=== PATIENT | male | born 1975 | race African-American/Black ===

== ENCOUNTER 2023-08-20 01:14 | Inpatient (IN) | payer OTHER ==
[2023-08-20 02:08] VITALS: BMI 23.5
[2023-08-20] MEDS ORDERED: MAG HYDROX/AL HYDROX/SIMETH 30 ML UNIT-DOSE CUP PO PRN (02:25)
[2023-08-20] MEDS ORDERED: NALOXONE HCL 0.4 MG/ML VIAL IM PRN (02:25)
[2023-08-20] MEDS ORDERED: DICYCLOMINE HCL 10 MG CAPSULE PO PRN (02:25)
[2023-08-20] MEDS ORDERED: IBUPROFEN 400 MG TABLET (FP) PO PRN (02:25)
[2023-08-20] MEDS ORDERED: ONDANSETRON *ODT* 4 MG TABLET SL PRN (02:25)
[2023-08-20] MEDS ORDERED: BENZOCAINE/MENTHOL (CHLORASEPTIC ) LOZENGE MM PRN (02:25)
[2023-08-20] MEDS ORDERED: guaiFENesin 600 MG TABLET.ER (FP) PO PRN (02:25)
[2023-08-20] MEDS ORDERED: MAGNESIUM HYDROX 2400MG/30ML ORAL SUSPENSION 30 ML CUP PO PRN (02:25)
[2023-08-20] MEDS ORDERED: ACETAMINOPHEN 325 MG TABLET (FP) PO PRN (02:25)
[2023-08-20] MEDS ORDERED: NALOXONE HCL (KLOXXADO) 8 MG SPRAY NS PRN (02:25)
[2023-08-20] MEDS ORDERED: LOPERAMIDE HCL 2 MG CAPSULE PO PRN (02:25)
[2023-08-20] MEDS ORDERED: BISMUTH SUBSALICYLATE 524 MG/30 ML PO PRN (02:25)
[2023-08-20] MEDS ORDERED: NICOTINE POLACRILEX 4 MG GUM BUC PRN (02:25)
[2023-08-20] MEDS ORDERED: POLYETHYLENE GLYCOL (HEALTHYLAX) 3350 17 GM PACKET PO PRN (02:25)
[2023-08-20] MEDS ORDERED: BENZONATATE 200 MG CAPSULE PO PRN (02:25)
[2023-08-20] MEDS ORDERED: cloNIDine HCL 0.1 MG TABLET PO ONE (02:27)
[2023-08-20] MEDS: hydrOXYzine PAMOATE 25 MG CAPSULE (FP) PO PRN (02:48)
[2023-08-20] MEDS ORDERED: methaDONE HCL 10 MG TABLET (FOR DETOX USE ONLY) PO ONE (09:15)
[2023-08-20] MEDS: PRENATAL VITAMINS W/ FOLIC ACID TABLET (FP) PO SCH (09:22)
[2023-08-20] MEDS: LISINOPRIL 10 MG TABLET PO SCH (09:23)
[2023-08-20] MEDS: NICOTINE 21 MG/24 HOURS TOPICAL PATCH TD SCH (09:31)
[2023-08-20 12:04] LABS: HEMATOCRIT 40.2 % (35.4-49); HEMOGLOBIN 12.5 GM/dL (11.7-16.9); MCH 22.7 pg (25.7-33.7); MEAN CELL VOLUME 73.3 fl (80-96); MEAN PLT VOLUME 8.5 fl (7.5-11.1); PLATELET COUNT 186 10^3/uL (134-434); RBC 5.48 M/mm3 (4.00-5.60); RDW 16.4 % (11.9-15.9); WHITE BLOOD COUNT 7.3 K/mm3 (4.0-10.0)
[2023-08-20 12:46] LABS: CHLORIDE 104 mmol/L (98-107); POTASSIUM 4.2 mmol/L (3.5-5.1); SODIUM 141 mmol/L (136-145)
[2023-08-20 12:51] LABS: CALCIUM 8.4 mg/dL (8.5-10.1)
[2023-08-20 12:52] LABS: ALBUMIN 3.3 g/dl (3.4-5.0); ANION GAP 5 mmol/L (4-13); BLOOD UREA NITROGEN 19.1 mg/dL (7-18); CO2 32 mmol/L (21-32); GLUCOSE,RANDOM 69 mg/dL (74-106)
[2023-08-20 12:55] LABS: CREATININE 1.3 mg/dL (0.55-1.3); SGOT/AST 26 U/L (15-37); SGPT/ALT 21 U/L (13-61)
[2023-08-20 12:56] LABS: BILIRUBIN,TOTAL 0.2 mg/dL (0.2-1); TOT PROT 6.6 g/dl (6.4-8.2)
[2023-08-20 12:58] LABS: ALK PHOS 83 U/L (45-117)
[2023-08-20] MEDS: METHOCARBAMOL 500 MG TABLET PO PRN (14:03)
[2023-08-20] MEDS: IBUPROFEN 600 MG TABLET (FP) PO PRN (14:03)
[2023-08-20] MEDS: diazePAM 5 MG TABLET PO PRN ×2 (14:05→22:28)
[2023-08-20] MEDS: MELATONIN 5 MG TABLETS PO SCH (22:29)
[2023-08-20] MEDS: cloNIDine HCL 0.1 MG TABLET PO PRN (22:29)
[2023-08-20] MEDS: THIAMINE HCL 100 MG TABLET (FP) PO SCH (22:29)
[2023-08-20 22:50] LABS: EPI CELLS 28 /uL (0-25.1); HYALINE CASTS 8 /uL (0-3.1); PH,URINE 6.5 (5.0-8.0); URINE APPEARANCE CLEAR; URINE BACTERIA 15 /uL (0-1359); URINE BILIRUBIN NEGATIVE (NEGATIVE); URINE COLOR YELLOW; URINE GLUCOSE (UA) NEGATIVE (NEGATIVE); URINE KETONE NEGATIVE (NEGATIVE); URINE LEUK ESTERASE 2+ (NEGATIVE); URINE NITRITE NEGATIVE (NEGATIVE); URINE PROTEIN TRACE (NEGATIVE); URINE RBC 27 /uL (0-23.9); URINE UROBILINOGEN 0.2 mg/dL (0.2-1.0); URINE WBC 266 /uL (0-25.8)
[2023-08-21] MEDS: PRENATAL VITAMINS W/ FOLIC ACID TABLET (FP) PO SCH (10:19)
[2023-08-21] MEDS: LISINOPRIL 10 MG TABLET PO SCH (10:20)
[2023-08-21] MEDS: NICOTINE 21 MG/24 HOURS TOPICAL PATCH TD SCH (10:22)
[2023-08-21] MEDS: ALBUTEROL SO4 HFA INHALER IH PRN ×3 (13:03→22:23)
[2023-08-21] MEDS ORDERED: ALBUTEROL SO4 HFA INHALER IH ONE (14:17)
[2023-08-21] MEDS: IBUPROFEN 600 MG TABLET (FP) PO PRN (17:15)
[2023-08-21] MEDS: cloNIDine HCL 0.1 MG TABLET PO PRN ×2 (17:15→22:22)
[2023-08-21] MEDS: diazePAM 5 MG TABLET PO PRN ×2 (17:18→22:22)
[2023-08-21] MEDS ORDERED: LISINOPRIL 10 MG TABLET PO ONE (20:46)
[2023-08-21] MEDS: THIAMINE HCL 100 MG TABLET (FP) PO SCH (22:22)
[2023-08-21] MEDS: MELATONIN 5 MG TABLETS PO SCH (22:22)
[2023-08-22] MEDS: diazePAM 5 MG TABLET PO PRN ×2 (05:37→22:02)
[2023-08-22] MEDS: METHOCARBAMOL 500 MG TABLET PO PRN ×3 (05:37→22:04)
[2023-08-22] MEDS ORDERED: methaDONE HCL 10 MG TABLET (FOR DETOX USE ONLY) PO ONE (10:00)
[2023-08-22] MEDS: LISINOPRIL 10 MG TABLET PO SCH (10:21)
[2023-08-22] MEDS: NICOTINE 21 MG/24 HOURS TOPICAL PATCH TD SCH (10:21)
[2023-08-22] MEDS: PRENATAL VITAMINS W/ FOLIC ACID TABLET (FP) PO SCH (10:21)
[2023-08-22] MEDS: hydrOXYzine PAMOATE 25 MG CAPSULE (FP) PO PRN (10:21)
[2023-08-22] MEDS: cloNIDine HCL 0.1 MG TABLET PO PRN ×2 (10:22→22:02)
[2023-08-22] MEDS ORDERED: FLU VACCINE (FLULAVAL) PF 60 MCG/0.5 ML SYRINGE 2023-2024 IM ONE (12:00)
[2023-08-22] MEDS: IBUPROFEN 600 MG TABLET (FP) PO PRN (15:09)
[2023-08-22] MEDS: BENZOCAINE 20 % GEL TUBE MM PRN (16:01)
[2023-08-22] MEDS: ALBUTEROL SO4 HFA INHALER IH PRN ×2 (16:02→22:01)
[2023-08-22] MEDS: MELATONIN 5 MG TABLETS PO SCH (22:02)
[2023-08-22] MEDS: THIAMINE HCL 100 MG TABLET (FP) PO SCH (22:02)
[2023-08-23] MEDS: BENZOCAINE 20 % GEL TUBE MM PRN ×2 (05:54→11:20)
[2023-08-23] MEDS: IBUPROFEN 600 MG TABLET (FP) PO PRN ×2 (05:55→15:30)
[2023-08-23] MEDS: PRENATAL VITAMINS W/ FOLIC ACID TABLET (FP) PO SCH (10:00)
[2023-08-23] MEDS: ALBUTEROL SO4 HFA INHALER IH PRN (10:00)
[2023-08-23] MEDS: METHOCARBAMOL 500 MG TABLET PO PRN ×2 (10:00→22:09)
[2023-08-23] MEDS: LISINOPRIL 10 MG TABLET PO SCH (10:00)
[2023-08-23] MEDS: hydrOXYzine PAMOATE 25 MG CAPSULE (FP) PO PRN ×2 (10:01→22:09)
[2023-08-23] MEDS: NICOTINE 21 MG/24 HOURS TOPICAL PATCH TD SCH (10:30)
[2023-08-23] MEDS ORDERED: cloNIDine HCL 0.1 MG TABLET PO ONE (17:45)
[2023-08-23 21:15] VITALS: RESP 18
[2023-08-23] MEDS: MELATONIN 5 MG TABLETS PO SCH (22:06)
[2023-08-23] MEDS: THIAMINE HCL 100 MG TABLET (FP) PO SCH (22:06)
[2023-08-24] MEDS: IBUPROFEN 600 MG TABLET (FP) PO PRN (06:07)
[2023-08-24 09:34] VITALS: PULSE 67; TEMP 98.2
[2023-08-24 09:35] VITALS: BP 173/106
[2023-08-24] MEDS ORDERED: methaDONE HCL 10 MG TABLET (FOR DETOX USE ONLY) PO ONE (10:00)
[2023-08-24] MEDS: PRENATAL VITAMINS W/ FOLIC ACID TABLET (FP) PO SCH (10:05)
[2023-08-24] MEDS: LISINOPRIL 10 MG TABLET PO SCH (10:06)
[2023-08-24] MEDS: NICOTINE 21 MG/24 HOURS TOPICAL PATCH TD SCH (10:06)
[2023-08-24] MEDS: hydrOXYzine PAMOATE 25 MG CAPSULE (FP) PO PRN (10:07)
[2023-08-24] MEDS: METHOCARBAMOL 500 MG TABLET PO PRN (10:07)
== END 2023-08-24 10:45 | disposition home or self-care (01) | DRG 773 ==
LOC: YASAS 01:14 → Y3N 02:53
PROVIDERS: ADMIT Allergy & Immunology; ATTEND Surgery
PROC: HZ2ZZZZ Detoxification Services for Substance Abuse Treatment (ICD-10-PCS; principal; 2023-08-20)
DX: F11.23 Opioid dependence with withdrawal (principal); F17.210 Nicotine dependence, cigarettes, uncomplicated; F19.24 Other psychoactive substance dependence with psychoactive substance-induced mood disorder; J44.9 Chronic obstructive pulmonary disease, unspecified; J45.20 Mild intermittent asthma, uncomplicated; M54.50 Low back pain, unspecified; G89.29 Other chronic pain; Z87.828 Personal history of other (healed) physical injury and trauma
CPT/HCPCS: 36415; 80053; 80307; 81003; 85027; 86593; 86780; 87086; 87635; 90686; 93005; 93010; G0008

== ENCOUNTER 2023-11-12 01:31 | Inpatient (IN) | payer OTHER ==
[2023-11-12 02:46] VITALS: BMI 22.7
[2023-11-12] MEDS ORDERED: BISMUTH SUBSALICYLATE 524 MG/30 ML PO PRN (03:23)
[2023-11-12] MEDS ORDERED: MAG HYDROX/AL HYDROX/SIMETH 30 ML UNIT-DOSE CUP PO PRN (03:23)
[2023-11-12] MEDS ORDERED: BENZONATATE 200 MG CAPSULE PO PRN (03:23)
[2023-11-12] MEDS ORDERED: BENZOCAINE/MENTHOL (CHLORASEPTIC ) LOZENGE MM PRN (03:23)
[2023-11-12] MEDS ORDERED: IBUPROFEN 400 MG TABLET (FP) PO PRN (03:23)
[2023-11-12] MEDS ORDERED: POLYETHYLENE GLYCOL (HEALTHYLAX) 3350 17 GM PACKET PO PRN (03:23)
[2023-11-12] MEDS ORDERED: NICOTINE POLACRILEX 2 MG LOZENGE BC PRN (03:23)
[2023-11-12] MEDS ORDERED: guaiFENesin 600 MG TABLET.ER (FP) PO PRN (03:23)
[2023-11-12] MEDS ORDERED: NALOXONE HCL 0.4 MG/ML VIAL IM PRN (03:23)
[2023-11-12] MEDS ORDERED: DICYCLOMINE HCL 10 MG CAPSULE PO PRN (03:23)
[2023-11-12] MEDS ORDERED: NALOXONE HCL (KLOXXADO) 8 MG SPRAY NS PRN (03:23)
[2023-11-12] MEDS ORDERED: LOPERAMIDE HCL 2 MG CAPSULE PO PRN (03:23)
[2023-11-12] MEDS ORDERED: ACETAMINOPHEN 325 MG TABLET (FP) PO PRN (03:23)
[2023-11-12] MEDS ORDERED: MAGNESIUM HYDROX 2400MG/30ML ORAL SUSPENSION 30 ML CUP PO PRN (03:23)
[2023-11-12] MEDS: IBUPROFEN 600 MG TABLET (FP) PO PRN ×2 (04:28→10:23)
[2023-11-12] MEDS: cloNIDine HCL 0.1 MG TABLET PO PRN ×3 (04:29→22:05)
[2023-11-12 09:59] LABS: HEMOGLOBIN 11.4 GM/dL (11.7-16.9); MCH 22.4 pg (25.7-33.7); MCHC 30.9 g/dl (32.0-35.9); MEAN CELL VOLUME 72.5 fl (80-96); MEAN PLT VOLUME 8.6 fl (7.5-11.1); PLATELET COUNT 225 10^3/uL (134-434); RDW 16.6 % (11.9-15.9); WHITE BLOOD COUNT 11.5 K/mm3 (4.0-10.0)
[2023-11-12] MEDS ORDERED: methaDONE HCL 10 MG TABLET (FOR DETOX USE ONLY) PO ONE (10:00)
[2023-11-12] MEDS: LISINOPRIL 10 MG TABLET PO SCH (10:22)
[2023-11-12] MEDS: NICOTINE 14 MG/24 HOURS TOPICAL PATCH TD SCH (10:22)
[2023-11-12] MEDS: PRENATAL VITAMINS W/ FOLIC ACID TABLET (FP) PO SCH (10:22)
[2023-11-12 10:27] LABS: CHLORIDE 104 mmol/L (98-107); POTASSIUM 3.8 mmol/L (3.5-5.1); SODIUM 138 mmol/L (136-145)
[2023-11-12 10:32] LABS: ALBUMIN 3.2 g/dl (3.4-5.0); ANION GAP 5 mmol/L (4-13); BLOOD UREA NITROGEN 16.7 mg/dL (7-18); CALCIUM 8.3 mg/dL (8.5-10.1); CO2 28 mmol/L (21-32); GLUCOSE,RANDOM 81 mg/dL (74-106)
[2023-11-12 10:35] LABS: CREATININE 1.4 mg/dL (0.55-1.3); SGOT/AST 25 U/L (15-37); SGPT/ALT 27 U/L (13-61)
[2023-11-12 10:37] LABS: TOT PROT 6.3 g/dl (6.4-8.2)
[2023-11-12 10:38] LABS: ALK PHOS 77 U/L (45-117); BILIRUBIN,TOTAL 0.4 mg/dL (0.2-1)
[2023-11-12] MEDS: clonazePAM 0.5 MG ODT TABLETS SL PRN ×2 (16:40→22:08)
[2023-11-12] MEDS: MELATONIN 5 MG TABLETS PO SCH (22:04)
[2023-11-12] MEDS: THIAMINE HCL 100 MG TABLET (FP) PO SCH (22:09)
[2023-11-12] MEDS: ALBUTEROL SO4 HFA INHALER IH PRN (22:10)
[2023-11-13] MEDS: ALBUTEROL SO4 HFA INHALER IH PRN ×4 (08:19→22:06)
[2023-11-13] MEDS: LISINOPRIL 10 MG TABLET PO SCH (10:10)
[2023-11-13] MEDS: PRENATAL VITAMINS W/ FOLIC ACID TABLET (FP) PO SCH (10:11)
[2023-11-13] MEDS: NICOTINE 14 MG/24 HOURS TOPICAL PATCH TD SCH (10:17)
[2023-11-13] MEDS: clonazePAM 0.5 MG ODT TABLETS SL PRN ×2 (10:18→16:54)
[2023-11-13] MEDS: OFLOXACIN 0.3% OTIC SOLUTION 5 ML BOTTLE AS SCH ×2 (10:42→22:05)
[2023-11-13] MEDS: QUEtiapine FUMARATE 50 MG TABLET PO SCH ×2 (10:42→22:04)
[2023-11-13 15:34] LABS: PH,URINE 6.5 (5.0-8.0); URINE APPEARANCE CLEAR; URINE BILIRUBIN NEGATIVE (NEGATIVE); URINE COLOR YELLOW; URINE GLUCOSE (UA) NEGATIVE (NEGATIVE); URINE KETONE NEGATIVE (NEGATIVE); URINE LEUK ESTERASE 1+ (NEGATIVE); URINE NITRITE NEGATIVE (NEGATIVE); URINE PROTEIN NEGATIVE (NEGATIVE); URINE UROBILINOGEN 0.2 mg/dL (0.2-1.0)
[2023-11-13 15:55] LABS: URINE WBC 18 /uL (0-25.8)
[2023-11-13 15:56] LABS: HYALINE CASTS 0.3 /uL (0-3.1)
[2023-11-13] MEDS: cloNIDine HCL 0.1 MG TABLET PO PRN ×2 (16:53→22:05)
[2023-11-13] MEDS: IBUPROFEN 600 MG TABLET (FP) PO PRN (16:53)
[2023-11-13] MEDS: THIAMINE HCL 100 MG TABLET (FP) PO SCH (22:04)
[2023-11-13] MEDS: MELATONIN 5 MG TABLETS PO SCH (22:05)
[2023-11-14] MEDS: ALBUTEROL SO4 HFA INHALER IH PRN ×4 (05:24→17:40)
[2023-11-14] MEDS: clonazePAM 0.5 MG ODT TABLETS SL PRN ×2 (05:27→17:19)
[2023-11-14] MEDS: cloNIDine HCL 0.1 MG TABLET PO PRN ×3 (06:44→22:06)
[2023-11-14] MEDS: QUEtiapine FUMARATE 50 MG TABLET PO SCH ×2 (09:36→22:05)
[2023-11-14] MEDS: PRENATAL VITAMINS W/ FOLIC ACID TABLET (FP) PO SCH (09:36)
[2023-11-14] MEDS: LISINOPRIL 10 MG TABLET PO SCH (09:37)
[2023-11-14] MEDS: NICOTINE 14 MG/24 HOURS TOPICAL PATCH TD SCH (09:38)
[2023-11-14] MEDS: OFLOXACIN 0.3% OTIC SOLUTION 5 ML BOTTLE AS SCH ×2 (09:38→22:06)
[2023-11-14] MEDS ORDERED: methaDONE HCL 10 MG TABLET (FOR DETOX USE ONLY) PO ONE (10:00)
[2023-11-14] MEDS: IBUPROFEN 600 MG TABLET (FP) PO PRN (10:32)
[2023-11-14] MEDS ORDERED: AMMONIUM LACTATE 12% LOTION 225 GM BOTTLE TP PRN (10:54)
[2023-11-14] MEDS: THIAMINE HCL 100 MG TABLET (FP) PO SCH (22:05)
[2023-11-14] MEDS: MELATONIN 5 MG TABLETS PO SCH (22:07)
[2023-11-15] MEDS: ALBUTEROL SO4 HFA INHALER IH PRN ×4 (08:15→22:12)
[2023-11-15] MEDS: QUEtiapine FUMARATE 50 MG TABLET PO SCH ×2 (10:14→22:10)
[2023-11-15] MEDS: LISINOPRIL 10 MG TABLET PO SCH (10:14)
[2023-11-15] MEDS: OFLOXACIN 0.3% OTIC SOLUTION 5 ML BOTTLE AS SCH ×2 (10:15→23:24)
[2023-11-15] MEDS: NICOTINE 14 MG/24 HOURS TOPICAL PATCH TD SCH (10:16)
[2023-11-15] MEDS: PRENATAL VITAMINS W/ FOLIC ACID TABLET (FP) PO SCH (10:18)
[2023-11-15] MEDS: IBUPROFEN 600 MG TABLET (FP) PO PRN (17:22)
[2023-11-15] MEDS: THIAMINE HCL 100 MG TABLET (FP) PO SCH (22:10)
[2023-11-15] MEDS: MELATONIN 5 MG TABLETS PO SCH (22:10)
[2023-11-16] MEDS ORDERED: guaiFENesin 200 MG/10 ML 10 ML UNIT-DOSE CUPS PO PRN (06:16)
[2023-11-16] MEDS ORDERED: cloNIDine HCL 0.1 MG TABLET PO ONE (06:19)
[2023-11-16] MEDS: IBUPROFEN 600 MG TABLET (FP) PO PRN (06:26)
[2023-11-16] MEDS ORDERED: SULFAMETHOXAZOLE/TRIMETHOPRIM 800MG/160MG D.S. TABLET PO SCH (10:00)
[2023-11-16] MEDS ORDERED: methaDONE HCL 10 MG TABLET (FOR DETOX USE ONLY) PO ONE (10:00)
[2023-11-16] MEDS ORDERED: LISINOPRIL 20 MG TABLET PO SCH (10:00)
[2023-11-16] MEDS: QUEtiapine FUMARATE 50 MG TABLET PO SCH (10:10)
[2023-11-16] MEDS: OFLOXACIN 0.3% OTIC SOLUTION 5 ML BOTTLE AS SCH (10:12)
[2023-11-16] MEDS: PRENATAL VITAMINS W/ FOLIC ACID TABLET (FP) PO SCH (10:13)
[2023-11-16] MEDS: NICOTINE 14 MG/24 HOURS TOPICAL PATCH TD SCH (10:13)
[2023-11-16] MEDS: ALBUTEROL SO4 HFA INHALER IH PRN (10:17)
[2023-11-16] MEDS ORDERED: HYDROCHLOROTHIAZIDE 25 MG TABLET (FP) PO ONE (13:00)
[2023-11-16 17:25] VITALS: BP 145/88; PULSE 83; RESP 18; TEMP 98.2
== END 2023-11-16 17:35 | disposition left against medical advice (07) | DRG 770 ==
LOC: YASAS 01:31 → Y6N 03:57
PROVIDERS: ADMIT Allergy & Immunology; ATTEND Allergy & Immunology
PROC: HZ2ZZZZ Detoxification Services for Substance Abuse Treatment (ICD-10-PCS; principal; 2023-11-12)
DX: F11.23 Opioid dependence with withdrawal (principal); F12.20 Cannabis dependence, uncomplicated; F17.210 Nicotine dependence, cigarettes, uncomplicated; F19.280 Other psychoactive substance dependence with psychoactive substance-induced anxiety disorder; F19.282 Other psychoactive substance dependence with psychoactive substance-induced sleep disorder; F19.24 Other psychoactive substance dependence with psychoactive substance-induced mood disorder; J45.20 Mild intermittent asthma, uncomplicated; I10 Essential (primary) hypertension; M54.50 Low back pain, unspecified; G89.29 Other chronic pain; R44.0 Auditory hallucinations; Z86.19 Personal history of other infectious and parasitic diseases; Z87.828 Personal history of other (healed) physical injury and trauma
CPT/HCPCS: 0241U-QW; 36415; 71045-TC-FY; 80053; 80307; 81003; 85027; 86593; 86780; 87086; 87635; 93005; 93010

== ENCOUNTER 2024-01-31 12:36 | Inpatient (IN) | payer OTHER ==
[2024-01-31 14:06] VITALS: BMI 23.9
[2024-01-31] MEDS ORDERED: POLYETHYLENE GLYCOL (HEALTHYLAX) 3350 17 GM PACKET PO PRN (16:46)
[2024-01-31] MEDS ORDERED: NALOXONE HCL (KLOXXADO) 8 MG SPRAY NS PRN (16:46)
[2024-01-31] MEDS ORDERED: BENZOCAINE/MENTHOL (CHLORASEPTIC ) LOZENGE MM PRN (16:46)
[2024-01-31] MEDS ORDERED: DICYCLOMINE HCL 10 MG CAPSULE PO PRN (16:46)
[2024-01-31] MEDS ORDERED: IBUPROFEN 400 MG TABLET (FP) PO PRN (16:46)
[2024-01-31] MEDS ORDERED: BENZONATATE 200 MG CAPSULE PO PRN (16:46)
[2024-01-31] MEDS ORDERED: MAGNESIUM HYDROX 2400MG/30ML ORAL SUSPENSION 30 ML CUP PO PRN (16:46)
[2024-01-31] MEDS ORDERED: ONDANSETRON *ODT* 4 MG TABLET SL PRN (16:46)
[2024-01-31] MEDS ORDERED: BISMUTH SUBSALICYLATE 524 MG/30 ML PO PRN (16:46)
[2024-01-31] MEDS ORDERED: NALOXONE HCL 0.4 MG/ML VIAL IM PRN (16:46)
[2024-01-31] MEDS ORDERED: MAG HYDROX/AL HYDROX/SIMETH 30 ML UNIT-DOSE CUP PO PRN (16:46)
[2024-01-31] MEDS ORDERED: ACETAMINOPHEN 325 MG TABLET (FP) PO PRN (16:46)
[2024-01-31] MEDS ORDERED: METHOCARBAMOL 500 MG TABLET ONE (17:01)
[2024-01-31] MEDS: LISINOPRIL 10 MG TABLET PO SCH (17:03)
[2024-01-31] MEDS: METHOCARBAMOL 500 MG TABLET PO PRN (17:05)
[2024-01-31] MEDS ORDERED: methaDONE HCL 10 MG TABLET (FOR DETOX USE ONLY) ONE (17:13)
[2024-01-31] MEDS: methaDONE HCL 10 MG TABLET (FOR DETOX USE ONLY) PO ONE (17:17)
[2024-01-31] MEDS: LOPERAMIDE HCL 2 MG CAPSULE PO PRN (17:47)
[2024-01-31] MEDS: cloNIDine HCL 0.1 MG TABLET PO PRN (17:47)
[2024-01-31] MEDS: predniSONE 20 MG TABLET (UD) PO SCH (19:24)
[2024-01-31] MEDS: MELATONIN 5 MG TABLETS PO SCH (21:53)
[2024-01-31] MEDS: IBUPROFEN 600 MG TABLET (FP) PO PRN (21:53)
[2024-01-31] MEDS: hydrOXYzine PAMOATE 25 MG CAPSULE (FP) PO PRN (21:53)
[2024-01-31] MEDS: THIAMINE HCL 100 MG TABLET (FP) PO SCH (21:53)
[2024-02-01] MEDS: guaiFENesin 600 MG TABLET.ER (FP) PO PRN (07:34)
[2024-02-01] MEDS: ALBUTEROL SO4 HFA INHALER IH PRN (07:36)
[2024-02-01] MEDS: cloNIDine HCL 0.1 MG TABLET PO ONE (09:11)
[2024-02-01] MEDS: PRENATAL VITAMINS W/ FOLIC ACID TABLET (FP) PO SCH (09:12)
[2024-02-01 11:15] LABS: HEMATOCRIT 41.7 % (35.4-49); HEMOGLOBIN 13.5 GM/dL (11.7-16.9); MCH 23.3 pg (25.7-33.7); MCHC 32.3 g/dl (32.0-35.9); MEAN CELL VOLUME 72.3 fl (80-96); MEAN PLT VOLUME 8.2 fl (7.5-11.1); PLATELET COUNT 261 10^3/uL (134-434); RBC 5.77 M/mm3 (4.00-5.60); RDW 16.9 % (11.9-15.9)
[2024-02-01 11:19] LABS: CHLORIDE 102 mmol/L (98-107); POTASSIUM 4.6 mmol/L (3.5-5.1); SODIUM 135 mmol/L (136-145)
[2024-02-01 11:22] LABS: CALCIUM 9.3 mg/dL (8.5-10.1)
[2024-02-01 11:24] LABS: ALBUMIN 3.7 g/dl (3.4-5.0); ANION GAP 3 mmol/L (4-13); BLOOD UREA NITROGEN 20.5 mg/dL (7-18); CO2 30 mmol/L (21-32); GLUCOSE,RANDOM 114 mg/dL (74-106)
[2024-02-01 11:27] LABS: CREATININE 1.3 mg/dL (0.55-1.3); SGOT/AST 21 U/L (15-37); SGPT/ALT 21 U/L (13-61)
[2024-02-01 11:29] LABS: ALK PHOS 89 U/L (45-117); BILIRUBIN,TOTAL 0.7 mg/dL (0.2-1); TOT PROT 7.6 g/dl (6.4-8.2)
[2024-02-01] MEDS: diazePAM 5 MG TABLET PO PRN (13:10)
[2024-02-01] MEDS: amLODIPine BESYLATE 10 MG TABLET (FP) PO SCH (13:10)
[2024-02-01] MEDS: QUEtiapine FUMARATE 50 MG TABLET PO SCH (21:34)
[2024-02-02] MEDS ORDERED: LISINOPRIL 10 MG TABLET PO ONE (09:00)
[2024-02-02] MEDS: methaDONE HCL 10 MG TABLET (FOR DETOX USE ONLY) PO ONE (09:20)
[2024-02-02] MEDS: HYDROCHLOROTHIAZIDE 25 MG TABLET (FP) PO ONE (09:21)
[2024-02-02] MEDS: LISINOPRIL 20 MG TABLET PO ONE (09:21)
[2024-02-02 12:56] VITALS: RESP 18
[2024-02-02 17:03] VITALS: BP 162/99; PULSE 76; TEMP 98
[2024-02-04] MEDS ORDERED: methaDONE HCL 10 MG TABLET (FOR DETOX USE ONLY) PO ONE (10:00)
== END 2024-02-02 18:50 | disposition left against medical advice (07) | DRG 770 ==
LOC: YASAS 12:36 → Y3N 17:19
PROVIDERS: ADMIT Allergy & Immunology; ATTEND Surgery
PROC: HZ2ZZZZ Detoxification Services for Substance Abuse Treatment (ICD-10-PCS; principal; 2024-01-31)
DX: F11.23 Opioid dependence with withdrawal (principal); F17.210 Nicotine dependence, cigarettes, uncomplicated; F31.9 Bipolar disorder, unspecified; F20.9 Schizophrenia, unspecified; F19.282 Other psychoactive substance dependence with psychoactive substance-induced sleep disorder; F19.24 Other psychoactive substance dependence with psychoactive substance-induced mood disorder; G47.00 Insomnia, unspecified; I10 Essential (primary) hypertension; J45.20 Mild intermittent asthma, uncomplicated; M54.50 Low back pain, unspecified; G89.29 Other chronic pain; R76.8 Other specified abnormal immunological findings in serum; Z86.19 Personal history of other infectious and parasitic diseases; Z59.00 Homelessness unspecified
CPT/HCPCS: 36415; 80053; 80307; 85027; 86593; 86780; 93005; 93010

== ENCOUNTER 2024-03-26 10:24 | Inpatient (IN) | payer OTHER ==
[2024-03-26 11:15] VITALS: BMI 23.1
[2024-03-26] MEDS ORDERED: BENZOCAINE/MENTHOL (CHLORASEPTIC ) LOZENGE MM PRN (11:32)
[2024-03-26] MEDS ORDERED: DICYCLOMINE HCL 10 MG CAPSULE PO PRN (11:32)
[2024-03-26] MEDS ORDERED: guaiFENesin 600 MG TABLET.ER (FP) PO PRN (11:32)
[2024-03-26] MEDS ORDERED: BISMUTH SUBSALICYLATE 524 MG/30 ML PO PRN (11:32)
[2024-03-26] MEDS ORDERED: POLYETHYLENE GLYCOL (HEALTHYLAX) 3350 17 GM PACKET PO PRN (11:32)
[2024-03-26] MEDS ORDERED: ACETAMINOPHEN 325 MG TABLET (FP) PO PRN (11:32)
[2024-03-26] MEDS ORDERED: NALOXONE HCL 0.4 MG/ML VIAL IM PRN (11:32)
[2024-03-26] MEDS ORDERED: BENZONATATE 200 MG CAPSULE PO PRN (11:32)
[2024-03-26] MEDS ORDERED: IBUPROFEN 400 MG TABLET (FP) PO PRN (11:32)
[2024-03-26] MEDS ORDERED: LOPERAMIDE HCL 2 MG CAPSULE PO PRN (11:32)
[2024-03-26] MEDS ORDERED: MAG HYDROX/AL HYDROX/SIMETH 30 ML UNIT-DOSE CUP PO PRN (11:32)
[2024-03-26] MEDS ORDERED: MAGNESIUM HYDROX 2400MG/30ML ORAL SUSPENSION 30 ML CUP PO PRN (11:32)
[2024-03-26] MEDS ORDERED: NALOXONE (NARCAN) HCL 4 MG/0.1 ML SPRAY NS PRN (11:32)
[2024-03-26] MEDS ORDERED: methaDONE HCL 10 MG TABLET (FOR DETOX USE ONLY) ONE (12:18)
[2024-03-26] MEDS ORDERED: ONDANSETRON *ODT* 4 MG TABLET ONE (12:18)
[2024-03-26] MEDS: methaDONE HCL 10 MG TABLET PO ONE (12:26)
[2024-03-26] MEDS: ONDANSETRON *ODT* 4 MG TABLET SL PRN (12:28)
[2024-03-26] MEDS: LISINOPRIL 10 MG TABLET PO SCH (12:28)
[2024-03-26] MEDS: PRENATAL VITAMINS W/ FOLIC ACID TABLET (FP) PO SCH (12:28)
[2024-03-26] MEDS: cloNIDine HCL 0.1 MG TABLET PO SCH (13:15)
[2024-03-26] MEDS ORDERED: methaDONE HCL 10 MG TABLET PO PRN (13:32)
[2024-03-26] MEDS: MELATONIN 5 MG TABLETS PO SCH (23:24)
[2024-03-26] MEDS: traZODone HCL 50 MG TABLET (FP) PO ONE (23:24)
[2024-03-26] MEDS: METHOCARBAMOL 500 MG TABLET PO PRN (23:24)
[2024-03-26] MEDS: hydrOXYzine PAMOATE 25 MG CAPSULE (FP) PO PRN (23:24)
[2024-03-26] MEDS: IBUPROFEN 600 MG TABLET (FP) PO PRN (23:24)
[2024-03-26] MEDS: THIAMINE 100 MG TABLET PO SCH (23:24)
[2024-03-27] MEDS: methaDONE 40 MG, methaDONE 10 MG PO ONE (10:13)
[2024-03-27] MEDS: amLODIPine BESYLATE 10 MG TABLET (FP) PO SCH (10:14)
[2024-03-27] MEDS: QUEtiapine FUMARATE 50 MG TABLET PO ONE (10:16)
[2024-03-27] MEDS: ALBUTEROL SO4 HFA INHALER IH PRN (10:16)
[2024-03-27 12:45] LABS: HEMATOCRIT 39.2 % (35.4-49); HEMOGLOBIN 12.6 GM/dL (11.7-16.9); MCH 23.1 pg (25.7-33.7); MCHC 32.2 g/dl (32.0-35.9); MEAN CELL VOLUME 71.8 fl (80-96); MEAN PLT VOLUME 7.8 fl (7.5-11.1); PLATELET COUNT 312 10^3/uL (134-434); RBC 5.47 M/mm3 (4.00-5.60)
[2024-03-27 14:11] LABS: POTASSIUM 5.7 mmol/L (3.5-5.1)
[2024-03-27 14:19] LABS: CALCIUM 9.5 mg/dL (8.5-10.1)
[2024-03-27 14:20] LABS: ALBUMIN 3.4 g/dl (3.4-5.0)
[2024-03-27 14:25] LABS: BILIRUBIN,TOTAL 0.5 mg/dL (0.2-1); TOT PROT 6.9 g/dl (6.4-8.2)
[2024-03-27 14:28] LABS: CREATININE 1.3 mg/dL (0.55-1.3)
[2024-03-27] MEDS: QUEtiapine FUMARATE 100 MG TABLET (FP) PO SCH (22:28)
[2024-03-28] MEDS: methaDONE 40 MG, methaDONE 20 MG PO ONE (09:44)
[2024-03-28 12:14] LABS: CALCIUM 8.7 mg/dL (8.5-10.1)
[2024-03-28 12:15] LABS: BLOOD UREA NITROGEN 15.2 mg/dL (7-18)
[2024-03-28 12:18] LABS: CREATININE 1.3 mg/dL (0.55-1.3)
[2024-03-28] MEDS: LISINOPRIL 10 MG TABLET PO ONE (15:47)
[2024-03-28] MEDS: cloNIDine HCL 0.1 MG TABLET PO PRN (15:50)
[2024-03-28] MEDS: QUEtiapine FUMARATE 100 MG TABLET (FP) PO SCH (21:22)
[2024-03-29] MEDS: methaDONE 40 MG, methaDONE 30 MG PO ONE (09:35)
[2024-03-29] MEDS: LISINOPRIL 20 MG TABLET PO SCH (09:37)
[2024-03-29 13:52] VITALS: BP 135/97; PULSE 81; RESP 18; TEMP 98.4
[2024-03-30] MEDS ORDERED: methaDONE HCL 40 MG DISPERSABLE TABLET PO ONE ×2 (10:00)
[2024-03-30] MEDS ORDERED: methaDONE 40 MG, methaDONE 30 MG PO ONE (10:00)
[2024-03-31] MEDS ORDERED: methaDONE HCL 40 MG DISPERSABLE TABLET PO ONE (10:00)
[2024-03-31] MEDS ORDERED: methaDONE 40 MG, methaDONE 30 MG PO ONE (10:00)
[2024-03-31] MEDS ORDERED: methaDONE 80 MG, methaDONE 10 MG PO ONE (10:00)
== END 2024-03-29 14:34 | disposition left against medical advice (07) | DRG 770 ==
LOC: YASAS 10:24 → Y6N 12:11 → Y3N 23:06
PROVIDERS: ADMIT Allergy & Immunology; ATTEND Surgery
PROC: HZ2ZZZZ Detoxification Services for Substance Abuse Treatment (ICD-10-PCS; principal; 2024-03-26)
DX: F11.23 Opioid dependence with withdrawal (principal); F12.20 Cannabis dependence, uncomplicated; F17.210 Nicotine dependence, cigarettes, uncomplicated; F19.282 Other psychoactive substance dependence with psychoactive substance-induced sleep disorder; F19.24 Other psychoactive substance dependence with psychoactive substance-induced mood disorder; F43.10 Post-traumatic stress disorder, unspecified; I10 Essential (primary) hypertension; R76.8 Other specified abnormal immunological findings in serum; Z86.19 Personal history of other infectious and parasitic diseases; Z86.59 Personal history of other mental and behavioral disorders; Z59.00 Homelessness unspecified
CPT/HCPCS: 36415; 80048; 80053; 80305; 85027; 86593; 86780; 93005; 93010; Q0162